=== PATIENT | female | born 1960 | race Caucasian/White ===

== ENCOUNTER 2017-05-12 09:46 | Emergency (ER) | payer SELFPAY ==
[2017-05-12 10:12] VITALS: BP 121/76; PULSE 70; RESP 18; TEMP 97.8; O2SAT 98
--- NOTE | 2017-05-12 11:06 | ED PDOC ---
HPI: Back Time Seen by Provider: 05/12/17 10:00 Chief Complaint (Nursing): Back Pain Chief Complaint (Provider): Back pain History Per: Patient History/Exam Limitations: no limitations Onset/Duration Of Symptoms: Other (2 weeks) Additional Complaint(s): Patient is a 56 y/o female presenting to the emergency department for upper back pain ongoing for two weeks that worsens with movement. Reports taking ibuprofen with no relief of symptoms. Denies cough or fall. PCP: none provided. Past Medical History Reviewed: Historical Data, Nursing Documentation, Vital Signs Vital Signs: Last Vital Signs Temp 97.8 F 05/12/17 10:10 Pulse 70 05/12/17 10:10 Resp 18 05/12/17 10:10 BP 121/76 05/12/17 10:10 Pulse Ox 98 05/12/17 10:10 - Medical History PMH: No Chronic Diseases - Surgical History Surgical History: Appendectomy - Family History Family History: States: Unknown Family Hx - Social History Current smoker - smoking cessation education provided: No Ex-Smoker (has not smoked in the last 12 months): No Alcohol: None - Immunization History Hx Tetanus Toxoid Vaccination: No - Home Medications Home Medications: Ambulatory Orders Medication Instructions Recorded Naproxen [Naprosyn] 1 tab PO BID PRN #14 tablet 05/12/17 diaZEpam [Valium] 5 mg PO Q6 PRN #6 tab 05/12/17 - Allergies Allergies/Adverse Reactions: Allergies Allergy/AdvReac Type Severity Reaction Status Date / Time No Known Allergies Allergy Verified 02/04/16 11:27 Review of Systems ROS Statement: Except As Marked, All Systems Reviewed And Found Negative Constitutional: Negative for: Other (trauma) Respiratory: Negative for: Cough Musculoskeletal: Positive for: Back Pain (upper) Physical Exam - Reviewed Nursing Documentation Reviewed: Yes Vital Signs Reviewed: Yes - Physical Exam Appears: Positive for: Well, Non-toxic, No Acute Distress Head Exam: Positive for: ATRAUMATIC, NORMAL INSPECTION, NORMOCEPHALIC Skin: Positive for: Normal Color, Warm, DRY Eye Exam: Positive for: EOMI, Normal appearance, PERRL Neck: Positive for: Normal, Painless ROM, Supple Cardiovascular/Chest: Positive for: Regular Rate, Rhythm. Negative for: Murmur Respiratory: Positive for: Normal Breath Sounds. Negative for: Accessory Muscle Use, Respiratory Distress Gastrointestinal/Abdominal: Positive for: Normal Exam, Soft. Negative for: Tenderness Back: Positive for: Other (Right parathoracic tenderness with palpation). Negative for: Vertebral Tenderness Extremity: Positive for: Normal ROM. Negative for: Pedal Edema Neurologic/Psych: Positive for: Alert, Oriented - ECG O2 Sat by Pulse Oximetry: 98 (RA) Pulse Ox Interpretation: Normal - Progress ED Course And Treament: Persistent back pain despite Toradol 30 mg IM Percocet 5/325 mg x 1 dose given in ED Medical Decision Making Medical Decision Making: Time: 10:23 Initial impression: Back pain Initial plan: Toradol 30 mg IM Reevaluation Scribe Attestation: Documented by Carla Ambrosio, acting as a scribe for ANSHU Finney. Provider Scribe Attestation: All medical record entries made by the Scribe were at my direction and personally dictated by me. I have reviewed the chart and agree that the record accurately reflects my personal performance of the history, physical exam, medical decision making, and the department course for this patient. I have also personally directed, reviewed, and agree with the discharge instructions and disposition. Disposition - Clinical Impression Clinical Impression: Muscle strain - Patient ED Disposition Is Patient to be Admitted: No - Disposition Referrals: [facility] [Outside] Disposition: Routine/Home Disposition Time: 12:24 Condition: FAIR Prescriptions: diaZEpam [Valium] 5 mg PO Q6 PRN #6 tab PRN Reason: Muscle Spasm Naproxen [Naprosyn] 1 tab PO BID PRN #14 tablet PRN Reason: Pain, Moderate (4-7) Instructions: Muscle Strain (ED) Forms: [employer] (Bulgarian) Print Language: [place]IZ[place]
[2017-05-12] MEDS ORDERED: Oxycodone/Acetaminophen 5/325 mg Tab PO STA (12:11)
[2017-05-12] MEDS ORDERED: Oxycodone/Acetaminophen 5/325 mg Tab ONE (12:13)
== END 2017-05-12 12:24 | disposition home or self-care (01) ==
LOC: H.ER 09:46
DX: S29.012A Strain of muscle and tendon of back wall of thorax, initial encounter (principal)
CPT/HCPCS: 96372; 99282; J1885

== ENCOUNTER 2018-09-18 19:31 | Emergency (ER) | payer SELFPAY ==
[2018-09-18] MEDS ORDERED: Sodium Chloride 0.9% 1,000 ML IV STA (22:32)
[2018-09-18] MEDS ORDERED: Iohexol 240 (50 ml) PO ONE (22:32)
--- NOTE | 2018-09-18 22:35 | ED PDOC ---
HPI: Abdomen Time Seen by Provider: 09/18/18 22:10 Chief Complaint (Nursing): Abdominal Pain Chief Complaint (Provider): abdominal pain History Per: Patient History/Exam Limitations: no limitations Onset/Duration Of Symptoms: Days (4) Current Symptoms Are (Timing): Still Present Location Of Pain/Discomfort: RLQ, LLQ, Suprapubic Quality Of Discomfort: "Pain" Associated Symptoms: Nausea, Diarrhea Additional Complaint(s): 58 y/o female presents for evaluation of intermittent lower abdominal pain x 4 days. Associated multiple episodes of bloody diarrhea, nausea. Denies fever, vomiting, chest pain, shortness of breath, palpitations, urinary symptoms, recent travel, sick contacts. Past Medical History Reviewed: Historical Data, Nursing Documentation, Vital Signs Vital Signs: Last Vital Signs Temp 98.2 F 09/18/18 20:10 Pulse 75 09/18/18 20:10 Resp 16 09/18/18 20:10 BP 125/72 09/18/18 20:10 Pulse Ox 99 09/18/18 20:10 - Medical History PMH: Gastritis, Hypothyroidism - Surgical History Surgical History: Appendectomy - Family History Family History: States: Unknown Family Hx - Immunization History Hx Tetanus Toxoid Vaccination: No - Home Medications Home Medications: Ambulatory Orders Medication Instructions Recorded Naproxen [Naprosyn] 1 tab PO BID PRN #14 tablet 05/12/17 diaZEpam [Valium] 5 mg PO Q6 PRN #6 tab 05/12/17 Ciprofloxacin HCl [Cipro] 500 mg PO BID #19 tab 09/19/18 Dicyclomine [Bentyl] 20 mg PO TID #21 tab 09/19/18 metroNIDAZOLE [Flagyl] 500 mg PO TID #29 tab 09/19/18 - Allergies Allergies/Adverse Reactions: Allergies Allergy/AdvReac Type Severity Reaction Status Date / Time No Known Allergies Allergy Verified 09/18/18 20:10 Review of Systems ROS Statement: Except As Marked, All Systems Reviewed And Found Negative Gastrointestinal: Positive for: Nausea, Abdominal Pain, Diarrhea Physical Exam - Reviewed Nursing Documentation Reviewed: Yes Vital Signs Reviewed: Yes - Physical Exam Appears: Positive for: Well, Non-toxic, No Acute Distress Head Exam: Positive for: ATRAUMATIC, NORMAL INSPECTION, NORMOCEPHALIC Skin: Positive for: Normal Color Eye Exam: Positive for: Normal appearance ENT: Positive for: Normal ENT Inspection Cardiovascular/Chest: Positive for: Regular Rate, Rhythm Respiratory: Positive for: Normal Breath Sounds Gastrointestinal/Abdominal: Positive for: Tenderness (rlq, suprapubic, llq) Back: Positive for: Normal Inspection Extremity: Positive for: Normal ROM Neurologic/Psych: Positive for: Alert, Oriented (x3) - Laboratory Results Result Diagrams: 09/18/18 22:54 09/18/18 22:54 - ECG O2 Sat by Pulse Oximetry: 99 - Progress ED Course And Treament: -cbc -cmp -lactic acid -urinalysis -CT abd/pelvis -IV NS bolus -IV toradol -IV zofran CT SCAN OF THE ABDOMEN AND PELVIS WITH CONTRAST. CLINICAL HISTORY: Abdominal pain. TECHNIQUE: Multiple axial and coronal CT images were obtained through the abdomen and pelvis after administration of intravenous and oral contrast carlos enrique barboza COMMENTS: Colonic diverticulosis. Diffuse thickening of the sigmoid colon. Mildly thickened bladder. The liver is of uniform attenuation without mass or defect. There is no intra or extrahepatic biliary ductal dilatation. The spleen is normal. The gallbladder is within normal limits. The pancreas is of normal contour and attenuation characteristics. There is no evidence of adrenal mass. Both kidneys demonstrate prompt and equal nephrograms. The kidneys are normal in size, shape and configuration. There is no evidence of renal or ureteral mass. No renal or ureteral calculi are identified. There is no hydroureter or hydronephrosis. No evidence for appendicitis. There is no bowel wall thickening. No evidence for small or large bowel obstruction. There is no evidence of abdominal ascites or lymphadenopathy. There is no evidence of intrinsic or extrinsic bladder mass. There is no pelvic ascites or lymphadenopathy. Images of the lung bases show no evidence of pleural or parenchymal mass. There are no pleural effusions. The bony structures are free of lytic or blastic lesions. IMPRESSION: Thickened sigmoid. Underdistention, spasm versus mild colitis. Mild thickening of the bladder, likely underdistention Patient educated on findings (via [employer] interpreter #[id number]), discharged with rx Cipro (dose given in ED), Flagyl (dose given in ED), Bentyl Advised bland diet. Fluids Follow up PMD within 2-3 days Return precautions given Disposition - Clinical Impression Clinical Impression: Colitis - Patient ED Disposition Is Patient to be Admitted: No Counseled Patient/Family Regarding: Studies Performed, Diagnosis, Need For Followup, Rx Given - Disposition Referrals: [facility] [Outside] Disposition: Routine/Home Disposition Time: 03:45 Condition: IMPROVED Prescriptions: Ciprofloxacin HCl [Cipro] 500 mg PO BID #19 tab Dicyclomine [Bentyl] 20 mg PO TID #21 tab metroNIDAZOLE [Flagyl] 500 mg PO TID #29 tab Instructions: Colitis Forms: [employer] (Telugu) Print Language: TELUGU
[2018-09-18 23:08] LABS: BASO % 0.7 % (0.0-2.0); EOS # 0.1 K/uL (0.0-0.7); EOS % 1.7 % (0.0-4.0); HEMOGLOBIN 12.4 g/dL (12.0-16.0); LYMPH % 33.3 % (20.0-40.0); MEAN CELL VOLUME 89.6 fl (81.0-99.0); MEAN CORPUSCULAR HEMOGLOBIN 29.3 pg (27.0-31.0); MEAN CORPUSCULAR HGB CONC 32.8 g/dL (33.0-37.0); MONO # 0.5 K/uL (0.0-0.8); MONO % 8.7 % (0.0-10.0); NEUT # 3.4 K/uL (1.8-7.0); NEUT % 55.6 % (50.0-75.0); NRBC % 0.2 % (0.0-0.0); RBC 4.22 Mil/uL (3.80-5.20); RED CELL DISTRIBUTION WIDTH 13.8 % (11.5-14.5); WHITE BLOOD COUNT 6.1 K/uL (4.8-10.8)
[2018-09-18 23:12] LABS: ALB/GLOB RATIO 1.3 (1.0-2.1); ALBUMIN 4.1 g/dL (3.5-5.0); ALT/SGPT 31 U/L (9-52); AST/SGOT 25 U/L (14-36); BLOOD UREA NITROGEN 18 mg/dl (7-17); CALCIUM 9.2 mg/dL (8.4-10.2); GFR NON-AFRICAN AMERICAN > 60
[2018-09-18 23:15] LABS: SQUAMOUS EPITHIAL < 1 /hpf (0-5); URINE AMORPHOUS SEDIMENT OCC /ul (<OCC); URINE BACTERIA RARE (<OCC); URINE BILIRUBIN NEGATIVE (NEGATIVE); URINE BLOOD NEGATIVE (NEGATIVE); URINE CLARITY CLOUDY (Clear); URINE COLOR YELLOW (YELLOW); URINE GLUCOSE (UA) NEG (NEGATIVE); URINE LEUKOCYTE ESTERASE NEG Leu/uL (Negative); URINE PROTEIN 30 mg/dL (NEGATIVE); URINE UROBILINOGEN 0.2-1.0 mg/dL (0.2-1.0)
[2018-09-18] MEDS ORDERED: Iohexol 240 (50 ml) ONE (23:16)
[2018-09-19] MEDS ORDERED: Iohexol 300 50 ML ONE (01:14)
[2018-09-19] MEDS ORDERED: Sodium Chloride 0.9% 50 ML IV ONE (01:14)
[2018-09-19 04:14] VITALS: BP 107/66; PULSE 65; RESP 18; TEMP 98; O2SAT 99
--- NOTE | 2018-09-19 09:42 | CT ---
Date of service: 09/19/2018 PROCEDURE: CT Abdomen and Pelvis with contrast HISTORY: lower abd pain, bloody diarrhea COMPARISON: None. TECHNIQUE: Following oral and intravenous contrast administration, a CT examination of the abdomen and pelvis performed from the domes of the diaphragms to the symphysis pubis with reformatted datasets provided not only axial but also sagittal and coronal series. Coronal and sagittal reformats were generated. Contrast dose: Omnipaque 300, 85 cc Radiation dose: Total exam DLP = 259.38 mGy-cm. This CT exam was performed using one or more of the following dose reduction techniques: Automated exposure control, adjustment of the mA and/or kV according to patient size, and/or use of iterative reconstruction technique. FINDINGS: LOWER THORAX: Small hiatal hernia encountered. LIVER: Unremarkable. No gross lesion or ductal dilatation. GALLBLADDER AND BILE DUCTS: Unremarkable. PANCREAS: Unremarkable. No gross lesion or ductal dilatation. SPLEEN: Unremarkable. ADRENALS: Unremarkable. No mass. KIDNEYS AND URETERS: Unremarkable. No hydronephrosis. No solid mass. VASCULATURE: Unremarkable. No aortic aneurysm. No aortic atherosclerotic calcification or mural plaque present. BOWEL: Stomach is collapsed and poorly evaluated. Evaluation of the gastrointestinal tract is limited due to the lack of oral contrast administration. No bowel obstruction. No gross mural thickening. Moderate retained fecal material scattered throughout the majority colon. APPENDIX: Not identified. Clinically correlate as to potential prior appendectomy. No CT evidence of appendicitis at this time. PERITONEUM: Unremarkable. No free fluid. No free air. LYMPH NODES: Unremarkable. No enlarged lymph nodes. BLADDER: Completely collapsed and poorly evaluated. REPRODUCTIVE: Unremarkable. BONES: No acute fracture. OTHER FINDINGS: None. IMPRESSION: No definitive acute intra-abdominal or pelvic findings as discussed above. The stomach and urinary bladder poorly evaluated due to a marked collapse. There is a small hiatal hernia appreciated with remainder the exam nonfocal. Preliminary report provided by Cira, 09/19/2018 3:11 a.m..
== END 2018-09-19 04:20 | disposition home or self-care (01) ==
LOC: H.ER 19:31
DX: K52.9 Noninfective gastroenteritis and colitis, unspecified (principal); E03.9 Hypothyroidism, unspecified
CPT/HCPCS: 74177; 80053; 81003; 83605; 85025; 96360; 99283; J1885; J2405; J7030; Q9966; Q9967

== ENCOUNTER 2018-09-27 20:51 | Emergency (ER) | payer SELFPAY ==
[2018-09-27 21:05] VITALS: BP 120/73; PULSE 69; RESP 18; TEMP 97.4; O2SAT 99
[2018-09-27] MEDS ORDERED: Sodium Chloride 0.9% 1,000 ML IV STA (21:26)
--- NOTE | 2018-09-27 22:28 | ED PDOC ---
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 denies: Vomiting, Diarrhea Additional Complaint(s): 58 y/o female presents to the ED for evaluation of diffuse abdominal pain associated with nausea, vomiting, diarrhea onset for 2 weeks. Patient was seen at [facility] ED on the 18 of September, received a CT scan, and was discharged with the diagnosis of colitis and prescribed Cipro, Fagyl and Bentyl. The diarrhea has resolved but nausea persists. Patient denies any vomiting today. She also reports of no bowel movement x3 days, decreased appetite, and headache. Otherwise, denies fever, urinary complaints, cough, SOB, dizziness, chest pain. PMD: none provided Past Medical History Reviewed: Historical Data, Nursing Documentation, Vital Signs Vital Signs: Last Vital Signs Temp 97.4 F L 09/27/18 21:02 Pulse 69 09/27/18 21:02 Resp 18 09/27/18 21:02 BP 120/73 09/27/18 21:02 Pulse Ox 99 09/27/18 21:02 - Medical History PMH: Gastritis, Hypothyroidism - Surgical History Surgical History: Appendectomy Other surgeries: cyst on stomach - Family History Family History: States: Unknown Family Hx - Social History Current smoker - smoking cessation education provided: No Alcohol: None Drugs: Denies - Home Medications Home Medications: Ambulatory Orders Medication Instructions Recorded Naproxen [Naprosyn] 1 tab PO BID PRN #14 tablet 05/12/17 diaZEpam [Valium] 5 mg PO Q6 PRN #6 tab 05/12/17 Ciprofloxacin HCl [Cipro] 500 mg PO BID #19 tab 09/19/18 Dicyclomine [Bentyl] 20 mg PO TID #21 tab 09/19/18 metroNIDAZOLE [Flagyl] 500 mg PO TID #29 tab 09/19/18 Famotidine [Pepcid] 40 mg PO DAILY #10 tablet 09/27/18 RX: Naproxen 500 mg PO BID PRN #20 tab 09/27/18 - Allergies Allergies/Adverse Reactions: Allergies Allergy/AdvReac Type Severity Reaction Status Date / Time No Known Allergies Allergy Verified 09/27/18 21:02 Review of Systems ROS Statement: Except As Marked, All Systems Reviewed And Found Negative Constitutional: Negative for: Fever, Chills Gastrointestinal: Positive for: Nausea, Abdominal Pain, Constipation, Other (decreased appetite ). Negative for: Vomiting, Diarrhea Neurological: Positive for: Headache Physical Exam - Reviewed Nursing Documentation Reviewed: Yes Vital Signs Reviewed: Yes - Physical Exam Comments: GENERAL APPEARANCE: Patient is awake, alert, oriented x 3, in no distress. SKIN: Warm, dry; (-) cyanosis. EYES: (-) conjunctival pallor, (-) scleral icterus. ENMT: Mucous membranes moist. Airway patent, (-) stridor. NECK: Supple, FROM CHEST AND RESPIRATORY: (-) rales, (-) rhonchi, (-) wheezes; breath sounds equal bilaterally. Respirations even and nonlabored. HEART AND CARDIOVASCULAR: (-) irregularity ABDOMEN AND GI: Soft (-) distention. Bowel sounds active x4; (+) diffuse tenderness. (-) guarding, (-) rebound, (-) palpable masses, (-) rigidity, (-) CVA tenderness. EXTREMITIES: (-) deformity NEURO AND PSYCH: Mental status as above; (-) focal findings. Gait: steady. Speech: clear. (-) facial asymmetry. EOMI and painless. Pupils equal and reactive. - Laboratory Results Result Diagrams: 09/27/18 22:40 09/27/18 22:40 - ECG O2 Sat by Pulse Oximetry: 99 (RA) Pulse Ox Interpretation: Normal Medical Decision Making Medical Decision Making: Time: 2100 Impression: abdominal pain, colitis Plan: CMP Lactic acid Lipase CBC w/ differential Normal saline 999 mls/hr Pepcid 40mg Toradol 30mg Zofran injection IV insertion Urinalysis Reevaluation 2245 Labs reviewed and grossly unremarkable. No leukocytosis. Lactic acid WNL. 2330 On re-evaluation, patient reports improvement of symptoms,. On exam, patient remains AAOx3, in no acute distress. Lungs clear to auscultation, cardiac RRR, abdomen soft, non-tender, repeat neuro exam shows no focal findings. Vitals stable. Lab / Diagnostic results d/w the patient in great detail. Diagnosis of abdominal pain, nausea, colitis d/w the patient. Based on history, exam and diagnostic results, plan will be for outpatient follow up with clinic Patient instructed to follow-up with pmd / referral provided / the clinic in 1- 2 days without fail. Advised to take medication as prescribed. Return to the emergency room at any time for any new or worsening symptoms. Patient states she fully agrees with and understands discharge instructions. States that she agrees with the plan and disposition. Verbalized and repeated discharge instruc tions and plan. I have given the patient opportunity to ask any additional questions. Scribe Attestation: Documented by Jael Schaffer, acting as a scribe for Maru Cool PA-C Provider Scribe Attestation: All medical record entries made by the Scribe were at my direction and personally dictated by me. I have reviewed the chart and agree that the record accurately reflects my personal performance of the history, physical exam, medical decision making, and the department course for this patient. I have also personally directed, reviewed, and agree with the discharge instructions and disposition. Disposition - Clinical Impression Clinical Impression: Abdominal pain, Colitis, Nausea - Patient ED Disposition Is Patient to be Admitted: No Counseled Patient/Family Regarding: Studies Performed, Diagnosis, Need For Followup, Rx Given - Disposition Referrals: [facility] [Outside] Disposition: Routine/Home Disposition Time: 23:35 Condition: STABLE Additional Instructions: La atencin mdica de emergencia que recibi hoy se dirigi a denys sntomas agudos. Si le recetaron algn medicamento, llnelo y tmelo segn las indicaciones. Los sntomas pueden tardar varios amado en resolverse. Regrese al Departamento de Emergencias si denys sntomas empeoran, no mejoran o si tiene otros problemas. Comunquese con cabrera mdico dentro de 2 amado para emily nueva evaluacin y gabriela un seguimiento o llame a rebecca de los mdicos / clnicas a los que monsalve sido referido y que figuran en el formulario de Informacin de visita al paciente que se incluye en cabrera [place]. Lleve todos los documentos que le entregaron al m omento del [place] junto con todos los medicamentos que est tomando para cabrera visita de seguimiento. Nuestro tratamiento no puede reemplazar la atencin mdica continua por parte de un proveedor de atencin primaria (PCP) fuera del departamento de emergencias. Prescriptions: Famotidine [Pepcid] 40 mg PO DAILY #10 tablet RX: Naproxen 500 mg PO BID PRN #20 tab PRN Reason: Pain, Moderate (4-7) Instructions: High Fiber Diet, Colitis, Acute Abdomen (Belly Pain), Nausea and Vomiting, Adult Forms: [employer] (Bolivian) Print Language: SWEDISH - POA Present On Arrival: None Results - Lab Results Lab Results: 09/27/18 09/27/18 09/27/18 22:40 22:40 22:40 WBC 6.2 RBC 4.34 Hgb 12.7 Hct 38.1 MCV 87.8 MCH 29.2 MCHC 33.3 RDW 13.9 Plt Count 143 MPV 12.2 H Neut % (Auto) 55.6 Lymph % (Auto) 34.0 [place] % (Auto) 8.1 Eos % (Auto) 1.4 Baso % (Auto) 0.9 Neut # (Auto) 3.4 Lymph # (Auto) 2.1 [place] # (Auto) 0.5 Eos # (Auto) 0.1 Baso # (Auto) 0.1 Sodium 140 Potassium 3.7 Chloride 101 Carbon Dioxide 28 Anion Gap 15 BUN 19 H Creatinine 0.9 Est GFR ( Amer) > 60 Est GFR (Non-Af Amer) > 60 Random Glucose 110 H Lactic Acid 1.0 Calcium 9.1 Total Bilirubin < 0.1 L AST 26 ALT 38 Alkaline Phosphatase 71 Total Protein 7.0 Albumin 4.0 Globulin 3.1 Albumin/Globulin Ratio 1.3 Lipase 70
[2018-09-27 22:54] LABS: BASO # 0.1 K/uL (0.0-0.2); BASO % 0.9 % (0.0-2.0); EOS # 0.1 K/uL (0.0-0.7); EOS % 1.4 % (0.0-4.0); HEMOGLOBIN 12.7 g/dL (12.0-16.0); LYMPH # 2.1 K/uL (1.0-4.3); MEAN CELL VOLUME 87.8 fl (81.0-99.0); MEAN CORPUSCULAR HEMOGLOBIN 29.2 pg (27.0-31.0); MEAN CORPUSCULAR HGB CONC 33.3 g/dL (33.0-37.0); MEAN PLATELET VOLUME 12.2 fl (7.2-11.7); MONO # 0.5 K/uL (0.0-0.8); MONO % 8.1 % (0.0-10.0); NEUT # 3.4 K/uL (1.8-7.0); NEUT % 55.6 % (50.0-75.0); NRBC % 0.1 % (0.0-0.0); RBC 4.34 Mil/uL (3.80-5.20); RED CELL DISTRIBUTION WIDTH 13.9 % (11.5-14.5); WHITE BLOOD COUNT 6.2 K/uL (4.8-10.8)
[2018-09-27 23:09] LABS: ALB/GLOB RATIO 1.3 (1.0-2.1); ALT/SGPT 38 U/L (9-52); AST/SGOT 26 U/L (14-36); BLOOD UREA NITROGEN 19 mg/dl (7-17); CALCIUM 9.1 mg/dL (8.4-10.2); GFR NON-AFRICAN AMERICAN > 60; LIPASE 70 U/L (23-300)
[2018-09-27 23:35] LABS: SQUAMOUS EPITHIAL 1 /hpf (0-5); URINE BILIRUBIN NEGATIVE (NEGATIVE); URINE BLOOD NEGATIVE (NEGATIVE); URINE CLARITY CLEAR (Clear); URINE COLOR STRAW (YELLOW); URINE GLUCOSE (UA) NEG (NEGATIVE); URINE LEUKOCYTE ESTERASE NEG Leu/uL (Negative); URINE PROTEIN NEGATIVE (NEGATIVE); URINE UROBILINOGEN 0.2-1.0 mg/dL (0.2-1.0)
== END 2018-09-27 23:35 | disposition home or self-care (01) ==
LOC: H.ER 20:51
DX: K52.9 Noninfective gastroenteritis and colitis, unspecified (principal); R11.0 Nausea; E03.9 Hypothyroidism, unspecified
CPT/HCPCS: 80053; 81003; 83605; 83690; 85025; 96361; 96374; 96375; 99283; J1885; J2405; J7030